=== PATIENT | female | born 1985 | race Caucasian/White ===

== ENCOUNTER 2018-01-05 12:24 | Inpatient (IN) | payer BC ==
[2018-01-05] MEDS ORDERED: Sodium Chloride 0.9% 10 ML Syringe FLUSH PRN (12:46)
[2018-01-05] MEDS ORDERED: Ondansetron 4 MG/2 ML SDV IVPUSH PRN ×2 (12:46→18:45)
[2018-01-05] MEDS ORDERED: Nalbuphine 20 MG/1 ML Amp IVPUSH PRN (12:46)
--- NOTE | 2018-01-05 12:54 | PCM.PREANE ---
Preanesthetic Assessment - Procedure Proposed Procedure: THOMAS - Anesthesia/Transfusion/Family Hx Anesthesia History: Prior Anesthesia Without Reaction Family History of Anesthesia Reaction: No Transfusion History: No Prior Transfusion(s) Intubation History: Unknown - Review of Systems General: No Symptoms Pulmonary: No Symptoms Cardiovascular: No Symptoms Gastrointestinal: Other (GERD with ) Neurological: No Symptoms Other: Reports: None - Physical Assessment NPO Status Date: 01/05/18 NPO Status Time: 12:00 Height: 1.7 m Weight: 115.893 kg ASA Class: 2 Mental Status: Alert & Oriented x3 Airway Class: Mallampati = 2 Dentition: Reports: Normal Dentition Thyro-Mental Finger Breadths: 3 Mouth Opening Finger Breadths: 3 ROM/Head Extension: Full Lungs: Clear to Auscultation, Normal Respiratory Effort Cardiovascular: Regular Rate, Regular Rhythm - Allergies Allergies/Adverse Reactions: Allergies Allergy/AdvReac Type Severity Reaction Status Date / Time Sulfa (Sulfonamide Allergy Cannot Verified 01/05/18 12:45 Antibiotics) Remember - Blood Blood Available: No Product(s) Available: None - Anesthesia Plan Pre-Op Medication Ordered: None - Acknowledgements Anesthesia Type Planned: Epidural (pending labs and vital signs ) Pt an Appropriate Candidate for the Planned Anesthesia: Yes Alternatives and Risks of Anesthesia Discussed w Pt/Guardian: Yes Pt/Guardian Understands and Agrees with Anesthesia Plan: Yes
[2018-01-05] MEDS ORDERED: Oxytocin/Lactated Ringers 10 UNIT/1,000 ML BAG IV SCH ×2 (13:00)
[2018-01-05] MEDS: Lactated Ringers 1,000 ML IV SCH ×3 (14:13→19:25)
--- NOTE | 2018-01-05 17:41 | PCM.LDHP ---
L&D History of Present Illness - General Date of Service: 01/05/18 Admit Problem/Dx: Patient Status Order with Admit Dx/Problem 01/05/18 12:46 Patient Status [ADT] Routine Admission Diagnosis/Problem Admission Diagnosis/Problem - History of Present Illness Introduction:: 32 year old at 39w5d here with SROM with meconium stained fluid at about noon. PNC with myself without complications. - Related Data Allergies/Adverse Reactions: Allergies Allergy/AdvReac Type Severity Reaction Status Date / Time Sulfa (Sulfonamide Allergy Cannot Verified 01/05/18 12:45 Antibiotics) Remember H&P Review of Systems - Review of Systems: Review Of Systems: See Below General: Reports: No Symptoms HEENT: Reports: No Symptoms. Denies: Headaches Pulmonary: Reports: No Symptoms Cardiovascular: Reports: No Symptoms Gastrointestinal: Reports: No Symptoms Genitourinary: Reports: No Symptoms Musculoskeletal: Reports: No Symptoms Skin: Reports: No Symptoms Psychiatric: Reports: No Symptoms Neurological: Reports: No Symptoms Hematologic/Lymphatic: Reports: No Symptoms Immunologic: Reports: No Symptoms L&D Exam - Exam Exam: See Below - Vital Signs Vital Signs: Last Vital Signs Temp 36.6 C 01/05/18 13:00 Pulse 80 01/05/18 13:00 Resp 17 01/05/18 13:00 BP 156/97 H 01/05/18 13:00 Pulse Ox 98 01/05/18 13:00 Weight: 115.893 kg - OB Specific Contraction Intensity: Mild Movement: Active Heart Tones: Present Heart Rate (FHR) Variability: Moderate (6-25 bmp) Presentation: Vertex - Saha Score Saha Score Cervix Position: Midposition Saha Score Consistency: Medium Saha Score Effacement: 51-70% Saha Score Dilation: 3-4 cm Saha Score 's Station: -2 Saha Score Total: 7 - Exam General: Alert, Oriented HEENT: PERRLA, Conjunctiva Clear, EACs Clear, EOMI, Hearing Intact, Mucosa Moist & [place], Nares Patent, Normal Nasal Septum, Posterior Pharynx Clear, TMs Clear Neck: Supple, Trachea Midline Lungs: Clear to Auscultation, Normal Respiratory Effort Cardiovascular: Regular Rate, Regular Rhythm GI/Abdominal Exam: Normal Bowel Sounds, Soft, Non-Tender, No Organomegaly, No Distention, No Abnormal Bruit, No Mass, Pelvis Stable Genitourinary: Normal external exam, Normal bimanual exam, Normal speculum exam Back Exam: Normal Inspection, Full Range of Motion Extremities: Normal Inspection, Normal Range of Motion, Non-Tender, No Pedal Edema, Normal Capillary Refill Skin: Warm, Dry, Intact Neurological: Cranial Nerves Intact, Reflexes Equal Bilateral Psychiatric: Alert, Normal Affect, Normal Mood - Patient Data Lab Results Last 24 hrs: Laboratory Results - last 24 hr 01/05/18 01/05/18 01/05/18 Range/Units 13:13 13:13 14:15 WBC 14.51 H (3.98-10.04) K/mm3 RBC 4.64 (3.98-5.22) M/mm3 Hgb 13.7 (11.2-15.7) gm/L Hct 40.8 (34.1-44.9) % MCV 87.9 (79.4-94.8) fl MCH 29.5 (25.6-32.2) pg MCHC 33.6 (32.2-35.5) g/dl RDW Std Deviation 46.4 H (36.4-46.3) fL Plt Count 247 (182-369) K/mm3 MPV 10.5 (9.4-12.3) fl Creatinine 0.9 (0.55-1.02) mg/dL Est Cr Clr Drug Dosing 87.27 mL/min Estimated GFR (MDRD) > 60 (>60) mL/min AST 21 (15-37) U/L ALT 15 (14-59) U/L Urine Color (Yellow) Urine Appearance (Clear) Urine pH (5.0-8.0) Ur Specific [place] (1.005-1.030) Urine Protein (Negative) Urine Glucose (UA) (Negative) Urine Ketones (Negative) Urine Occult Blood (Negative) Urine Nitrite (Negative) Urine Bilirubin (Negative) Urine Urobilinogen (0.2-1.0) Ur Leukocyte Esterase (Negative) Blood Type O POSITIVE Gel Antibody Screen Negative 01/05/18 Range/Units 14:30 WBC (3.98-10.04) K/mm3 RBC (3.98-5.22) M/mm3 Hgb (11.2-15.7) gm/L Hct (34.1-44.9) % MCV (79.4-94.8) fl MCH (25.6-32.2) pg MCHC (32.2-35.5) g/dl RDW Std Deviation (36.4-46.3) fL Plt Count (182-369) K/mm3 MPV (9.4-12.3) fl Creatinine (0.55-1.02) mg/dL Est Cr Clr Drug Dosing mL/min Estimated GFR (MDRD) (>60) mL/min AST (15-37) U/L ALT (14-59) U/L Urine Color Yellow (Yellow) Urine Appearance Clear (Clear) Urine pH 6.0 (5.0-8.0) Ur Specific [place] > or = 1.030 (1.005-1.030) Urine Protein Trace H (Negative) Urine Glucose (UA) Negative (Negative) Urine Ketones Trace H (Negative) Urine Occult Blood Trace-intact H (Negative) Urine Nitrite Negative (Negative) Urine Bilirubin Negative (Negative) Urine Urobilinogen 0.2 (0.2-1.0) Ur Leukocyte Esterase Negative (Negative) Blood Type Gel Antibody Screen Result Diagrams: 01/05/18 13:13 01/05/18 14:15 Problem List Initiated/Reviewed/Updated: Yes Orders Last 24hrs: Active Orders 24 hr Category Date Time Status Patient Status [ADT] Routine ADT 01/05/18 12:46 Active Activity as Tolerated [RC] PFP Care 01/05/18 12:46 Active Communication Order [RC] ASDIRECTED Care 01/05/18 12:46 Active Heart Tones [RC] ASDIRECTED Care 01/05/18 12:47 Active Notify Provider [RC] PFP Care 01/05/18 12:46 Active Notify Provider [RC] PRN Care 01/05/18 12:46 Active Peripheral IV Care [RC] . DIRECTED Care 01/05/18 12:47 Active Urinary Catheter Assessment [RC] ASDIRECTED Care 01/05/18 12:46 Active Vital Signs [RC] PER UNIT ROUTINE Care 01/05/18 12:46 Active Regular Diet [DIET] Diet 01/05/18 Dinner Active UA W/O MICROSCOPIC [URIN] Routine Lab 01/05/18 14:30 Ordered Lactated Ringers [Ringers, Lactated] 1,000 ml Med 01/05/18 13:00 Active IV ASDIRECTED Nalbuphine [Nubain] Med 01/05/18 12:46 Active 10 mg IVPUSH Q2H PRN Ondansetron [Zofran] Med 01/05/18 12:46 Active 4 mg IVPUSH Q4H PRN Oxytocin/Lactated Ringers [Pitocin in LR 10 Units/1,000 Med 01/05/18 13:00 Active ML] 10 unit in 1,000 ml IV .CONTINUOUS Oxytocin/Lactated Ringers [Pitocin in LR 10 Units/1,000 Med 01/05/18 13:00 Active ML] 10 unit in 1,000 ml IV TITRATE Sodium Chloride 0.9% [Saline Flush] Med 01/05/18 12:46 Active 10 ml FLUSH ASDIRECTED PRN Electronic Heart Tones Ext w TOCO [WOMSER] Oth 01/05/18 12:46 Ordered Routine Electronic Heart Tones Internal [WOMSER] Per Unit Oth 01/05/18 12:46 Ordered Routine Peripheral IV Insertion Adult [OM.PC] Routine Oth 01/05/18 12:46 Ordered Resuscitation Status Routine Resus Stat 01/05/18 12:46 Ordered Medication Orders Lactated Ringer's (Ringers, Lactated) 1,000 mls @ 100 mls/hr IV ASDIRECTED DENNIS Last Admin: 01/05/18 16:31 Dose: 100 mls/hr Infusion: 01/05/18 16:31 Dose: 100 mls/hr Admin: 01/05/18 14:13 Dose: 100 mls/hr Oxytocin/Lactated Ringer's (Pitocin In Lr 10 Units/1,000 Ml) 10 unit in 1,000 mls @ 12 mls/hr IV TITRATE DENNIS; Protocol Last Titration: 01/05/18 16:35 Dose: 4 munits/min, 24 mls/hr Admin: 01/05/18 14:14 Dose: 2 munits/min, 12 mls/hr Oxytocin/Lactated Ringer's (Pitocin In Lr 10 Units/1,000 Ml) 10 unit in 1,000 mls @ 100 mls/hr IV .CONTINUOUS DENNIS Nalbuphine HCl (Nubain) 10 mg IVPUSH Q2H PRN PRN Reason: Pain (moderate 4-6) Ondansetron HCl (Zofran) 4 mg IVPUSH Q4H PRN PRN Reason: Nausea/Vomiting Sodium Chloride (Saline Flush) 10 ml FLUSH ASDIRECTED PRN PRN Reason: Keep Vein Open Assessment/Plan Comment:: Term SROM Yandel painfully on 6 mu/min pitocin. Planning no epidural Blood pressures elevated. - Labs normal. Anticipate . Planning to sign out to Dr. Robertson concrete vault maker. Sign out will be given.
[2018-01-05] MEDS ORDERED: diphenhydrAMINE 50 MG/ML SDV IVPUSH PRN (18:45)
[2018-01-05] MEDS ORDERED: ePHEDrine 50 MG/ML SDV IVPUSH PRN (18:45)
[2018-01-05] MEDS ORDERED: fentaNYL 100 MCG/2 ML SDV EPIDUR PRN (18:45)
[2018-01-05] MEDS ORDERED: fentaNYL/Bupivacaine in NS PF 2.5 MCG/ML-0.1% 50 ML Syringe EPIDUR SCH (18:45)
[2018-01-05] MEDS ORDERED: Bupivacaine 0.25% 10 ML SDV ONE (20:00)
--- NOTE | 2018-01-05 21:44 | PCM.SN ---
- Free Text/Narrative Note: Ann Marie is a 32-year-old 3 now para 3003 white female who was admitted early in the afternoon of 01/05/2018 for reported spontaneous rupture membranes with resultant meconium-stained amniotic fluid. The patient was seen in clinic by Dr. Ordonez at [facility] earlier today. She was admitted to labor and delivery and found to have ruptured membranes. She progressed steadily in labor and became complete at approximately about 2045 hrs. She pushed well and with 3 contractions delivered a viable, elizabeth, female infant at 2111 hrs. The baby was 21 inches in length, had Apgars of 8 and 9, weight 3240 g (7 pounds 2.3 ounces) and delivered in left occiput anterior position. The baby was taken to the warmer immediately after after the cord was clamped 2 and then was cut by the baby's father. Baby was taken to the warmer for Dr. Landaverde- automation control technician to evaluate and treat because of meconium-stained amniotic fluid. Cord blood was obtained. The cord was noted to have true knot present but the knot was loose. Umbilical cord was well-developed with a significant amount of Moody's jelly present. The perineum was found to have a small superficial first-degree laceration right at the introitus. This was repaired with 3-0 Monocryl suture in a single [id number] suture. Placenta delivered at 2117 hrs., intact, Gross presentation and was discarded per patient's desire. Significant amount of fibrin and calcium deposited within it. Nuchal cord had 3 vessels. blood loss was 100 mL. Baby's name is Ingrid Rivas. Patient plans to nurse. Condition: Good
[2018-01-05] MEDS ORDERED: Lanolin 100% Cream 7 GM Tube TOP PRN (22:09)
[2018-01-05] MEDS ORDERED: Docusate Sodium 100 MG Cap PO PRN (22:09)
[2018-01-05] MEDS ORDERED: Benzocaine/Menthol 20%-0.5% Spray 56 GM Canister TOP PRN (22:09)
[2018-01-05] MEDS ORDERED: Acetaminophen 325 MG Tab PO PRN (22:09)
[2018-01-05] MEDS ORDERED: Witch Hazel Medicated Pads 100/Jar TOP PRN (22:09)
[2018-01-06] MEDS ORDERED: Pseudoephedrine 30 MG Tab PO PRN (00:44)
[2018-01-06] MEDS ORDERED: Oxymetazoline 0.05% Nasal Spray 15 ML Bottle NAS PRN (00:45)
[2018-01-06] MEDS ORDERED: Loratadine 10 MG Tab PO PRN (00:47)
--- NOTE | 2018-01-06 09:09 | PCM.SN ---
- Free Text/Narrative Note: PPD # 1 Subjective: Doing well overall. Ambulating and voiding without difficulty. Lochia minimal. Tolerating regular diet without nausea or vomiting. Pain controlled with oral medications. with minimal difficulty. Baby's name is Ingrid Donahue. Objective: Vital Signs - 24 hr 01/05/18 01/06/18 01/06/18 13:00 00:58 02:40 Temperature 99.0 F Temperature [ 97.9 F Axillary] Pulse, 106 H Peripheral Pulse, 80 Peripheral [ Pulse Oximetry] Respiratory 17 16 Rate Blood Pressure 147/99 H 143/81 H Blood Pressure 156/97 H [Right Arm] O2 Sat by Pulse 98 97 Oximetry Physical Exam General: Alert and oriented, no acute distress Abdomen: fundus is firm, midline, nontender, and at the umbilicus Extremities: Trace edema present in bilateral lower extremities ASSESSMENT: 1. 32-year-old female 3, para 3-0-0-3. 2. Normal vaginal delivery with true knot present in cord, PPD #1 3. Spontaneous rupture of membranes with meconium stained fluid 4. Gestational hypertension - BPs continue to be moderately elevated at 140s/80- 90s after delivery, all pre-eclampsia labs WNL PLAN: 1. Doing well with no concerns 2. with minimal difficulty 3. Lochia minimal 4. Continue to monitor BP 5. Continue routine care 6. Anticipate discharge home later today
[2018-01-06] MEDS: Prenatal Multivitamin with Calcium/Folic Acid/Iron Tab PO SCH (10:33)
--- NOTE | 2018-01-06 19:52 | PCM48HPAN ---
Post Anesthesia Note - EVALUATION WITHIN 48HRS OF ANESTHETIC Vital Signs in Normal Range: Yes Patient Participated in Evaluation: Yes Respiratory Function Stable: Yes Airway Patent: Yes Cardiovascular Function Stable: Yes Hydration Status Stable: Yes Pain Control Satisfactory: Yes Nausea and Vomiting Control Satisfactory: Yes Mental Status Recovered: Yes
[2018-01-06] MEDS: Ibuprofen 600 MG Tab PO PRN (20:44)
[2018-01-06] MEDS: Labetalol 100 MG Tab PO SCH ×2 (20:45→21:31)
--- NOTE | 2018-01-07 07:50 | PCM.DCSUM1 ---
Discharge Summary - Hospital Course Free Text/Narrative:: Ann Marie is a 32-year-old 3 now para 3003 white female who was admitted early in the afternoon of 01/05/2018 for reported spontaneous rupture membranes with resultant meconium-stained amniotic fluid. The patient was seen in clinic by Dr. Ordonez at [facility] earlier today. She was admitted to labor and delivery and found to have ruptured membranes. She progressed steadily in labor and became complete at approximately about 2045 hrs. She pushed well and with 3 contractions delivered a viable, elizabeth, female at 2111 hrs. The baby was 21 inches in length, had Apgars of 8 and 9, weight 3240 g (7 pounds 2.3 ounces) and delivered in left occiput anterior position. The baby was taken to the warmer immediately after after the cord was clamped 2 and then was cut by the baby's father. Baby was taken to the warmer for Dr. Landaverde- environmental health manager to evaluate and treat because of meconium-stained amniotic fluid. Cord blood was obtained. The cord was noted to have true knot present but the knot was loose. Umbilical cord was well-developed with a significant amount of Purling's jelly present. The perineum was found to have a small superficial first-degree laceration right at the introitus. This was repaired with 3-0 Monocryl suture in a single [id number] suture. Placenta delivered at 2117 hrs., intact, Gross presentation and was discarded per patient's desire. Significant amount of fibrin and calcium deposited within it. Nuchal cord had 3 vessels. blood loss was 100 mL. Baby's name is Ingrid Rivas. Patient plans to nurse. patient has done well. She is nursing without problems, voiding without concerns and ambulating well. Her lochia is minimal. She is desiring discharge home. - Discharge Data Discharge Date: 01/07/18 Discharge Disposition: Home, Self-Care 01 Condition: Good - Patient Instructions Diet: Regular Diet as Tolerated (Nursing diet with increased calories and calcium as recommended) Activity: As Tolerated (No intercourse or tampons until bleeding resolves) Driving: May Drive Today Showering/Bathing: May Shower (May take a bath) Notify Provider of: Fever, Increased Pain, Swelling and Redness, Nausea and/or Vomiting - Discharge Plan Home Medications: Home Meds Acetaminophen [Tylenol] 650 mg PO Q4H PRN tablet 01/07/18 [Rx] Ibuprofen [IJD: Ibuprofen] 600 mg PO Q4H PRN tablet 01/07/18 [Rx] Labetalol [Normodyne] 200 mg PO BID #12 tablet 01/07/18 [Rx] Referrals: Radha Mckeon MD [Primary Care Provider] - (Return to clinicDr. Boyd 7 days for follow-up of blood pressure elevation.) - Discharge Summary/Plan Comment DC Time >30 min.: No Discharge Summary/Plan Comment: Discharge instructions: 1. Discharge home 2. Diet, activity and follow-up discussed with patient. Recommend nursing diet with increased calories and calcium. 3. Precautions given concern increased pain, bleeding, temperature, signs/ symptoms of DVT/PE. 4. Medications per home medication was printed, discussed with and given to the patient. 5. Return to clinic-Dr. Ordonez at [facility] this week. Diagnosis: 1. Term -delivered 2. Gestational hypertension Condition: Good - Patient Data Vitals - Most Recent: Last Vital Signs Temp 36.8 C 01/07/18 04:24 Pulse 72 01/07/18 04:24 Resp 16 01/07/18 04:24 BP 126/89 01/07/18 04:24 Pulse Ox 98 01/07/18 04:24 Weight - Most Recent: 115.893 kg Med Orders - Current: Current Medications Acetaminophen (Tylenol) 650 mg PO Q4H PRN PRN Reason: mild pain or fever Benzocaine/Menthol (Dermoplast Pain Relief [place]) 0 gm TOP ASDIRECTED PRN PRN Reason: Perineal Comfort Measure Last Admin: 01/05/18 23:53 Dose: 1 applic Docusate Sodium (Colace) 100 mg PO BID PRN PRN Reason: Constipation Emollient Ointment (Lansinoh Hpa) 0 gm TOP ASDIRECTED PRN PRN Reason: Sore Nipples Ibuprofen (Motrin) 600 mg PO Q4H PRN PRN Reason: Mild pain or fever Last Admin: 01/06/18 20:44 Dose: 600 mg Labetalol HCl (Normodyne) 200 mg PO BID DENNIS Last Admin: 01/06/18 21:31 Dose: Not Given Loratadine (Claritin) 10 mg PO DAILY PRN PRN Reason: Congestion Last Admin: 01/06/18 17:42 Dose: 10 mg Oxymetazoline HCl (Afrin Original 0.05% Nasal [place]) 1 - 2 ml MELODIE Q12HR PRN PRN Reason: Congestion Last Admin: 01/06/18 00:58 Dose: 2 spray Prenat Multivit/[place]/Iron/Folic Ac ( Plus Iron) 1 each PO DAILY DENNIS Last Admin: 01/06/18 10:33 Dose: Not Given Pseudoephedrine HCl (Sudogest) 60 mg PO Q8H PRN PRN Reason: Congestion Last Admin: 01/07/18 04:34 Dose: 60 mg Witch Jocelyne (Tucks) 1 pad TOP ASDIRECTED PRN PRN Reason: Hemorrhoid pain Last Admin: 01/05/18 23:52 Dose: 1 applic Discontinued Medications Diphenhydramine HCl (Benadryl) 25 mg IVPUSH Q6H PRN PRN Reason: Pruritis Ephedrine Sulfate (Ephedrine Sulfate) 5 mg IVPUSH ASDIRECTED PRN PRN Reason: Hypotension Fentanyl (Sublimaze) 100 mcg EPIDUR Q3H PRN PRN Reason: Pain Last Admin: 01/05/18 19:11 Dose: 100 mcg Fentanyl/Bupivacaine HCl (Fentanyl/Bupivacaine/Ns 2.5 Mcg-0.1% 50 Ml) 50 ml EPIDUR ASDIRECTED DENNIS Last Admin: 01/05/18 19:12 Dose: 50 ml Lactated Ringer's (Ringers, Lactated) 1,000 mls @ 100 mls/hr IV ASDIRECTED DENNIS Last Admin: 01/05/18 19:25 Dose: 100 mls/hr Oxytocin/Lactated Ringer's (Pitocin In Lr 10 Units/1,000 Ml) 10 unit in 1,000 mls @ 12 mls/hr IV TITRATE DENNIS; Protocol Last Titration: 01/05/18 20:45 Dose: 6 munits/min, 36 mls/hr Oxytocin/Lactated Ringer's (Pitocin In Lr 10 Units/1,000 Ml) 10 unit in 1,000 mls @ 100 mls/hr IV .CONTINUOUS DENNIS Nalbuphine HCl (Nubain) 10 mg IVPUSH Q2H PRN PRN Reason: Pain (moderate 4-6) Ondansetron HCl (Zofran) 4 mg IVPUSH Q4H PRN PRN Reason: Nausea/Vomiting Ondansetron HCl (Zofran) 4 mg IVPUSH ONETIME PRN PRN Reason: Nausea/Vomiting Sodium Chloride (Saline Flush) 10 ml FLUSH ASDIRECTED PRN PRN Reason: Keep Vein Open
[2018-01-07] MEDS: Labetalol 100 MG Tab PO SCH (08:56)
[2018-01-07] MEDS: Ibuprofen 600 MG Tab PO PRN (08:57)
[2018-01-07] MEDS: Prenatal Multivitamin with Calcium/Folic Acid/Iron Tab PO SCH (08:57)
== END 2018-01-07 10:05 | disposition home or self-care (01) | DRG 560 ==
LOC: JD.OBCHECK 12:24 → JD.OB 12:29 → JD.OBCHECK 12:45 → JD.OB 12:46 → OBSVTOIN 21:11 → JD.OB 21:11
PROVIDERS: ADMIT Obstetrics & Gynecology; ATTEND Obstetrics & Gynecology
PROC: 10E0XZZ Delivery of Products of Conception, External Approach (ICD-10-PCS; principal; 2018-01-05)
PROC: 0HQ9XZZ Repair Perineum Skin, External Approach (ICD-10-PCS; principal; 2018-01-05)
PROC: 6A550ZT Pheresis of Cord Blood Stem Cells, Single (ICD-10-PCS; principal; 2018-01-05)
PROC: 3E0R3BZ Introduction of Anesthetic Agent into Spinal Canal, Percutaneous Approach (ICD-10-PCS; 2018-01-05)
PROC: 00HU33Z Insertion of Infusion Device into Spinal Canal, Percutaneous Approach (ICD-10-PCS; 2018-01-05)
DX: O77.0 Labor and delivery complicated by meconium in amniotic fluid (principal); O69.2XX0 Labor and delivery complicated by other cord entanglement, with compression, not applicable or unspecified; O70.0 First degree perineal laceration during delivery; O13.4 Gestational [pregnancy-induced] hypertension without significant proteinuria, complicating childbirth; Z3A.39 39 weeks gestation of pregnancy; Z37.0 Single live birth; Z88.2 Allergy status to sulfonamides
CPT/HCPCS: 36415; 51702; 59025; 59300; 59409; 81003; 82565; 84450; 84460; 85027; 86850; 86900; 86901; A9270-GY; J2590; J3010; J7120